=== PATIENT | female | born 1985 | race African-American/Black ===

== ENCOUNTER 2024-12-06 08:56 | Outpatient (AMB) | payer OTHER, SELFPAY ==
--- NOTE | 2024-12-06 09:00 | A.OFFVIS_ITS ---
Vital Signs 12/06/24 09:01 Height 5 ft 5 in Weight 343 lb 4.156 oz BMI 57.1 BP 126/84 Blood Pressure Location Rt brachial Position Sitting Pulse 73 Pulse Source Pulse Oximeter Pulse Oximetry (%) 98 Oxygen Delivery Method Room Air Intake Visit Reasons: DMT2 A1c 7.6% Intake Note: Patient present today for Type 2 Diabetes Mellitus Last Diabetic eye exam: 09/2024 [facility] Last Podiatry Visit: Doesn't have one Random Glucose: 116 mg/dl HgA1C: 7.6% 09/2024 (PCP) Mail Rider Required: No Accompanied by: Daughter Allergies No Known Allergies Allergy (Verified 12/06/24 09:06) Medication List - Last Reconciled 12/06/24 by Emi Toussaint PA-C albuterol sulfate 90 mcg/actuation (Ventolin HFA) 2 puffs inhalation Q4H PRN alcohol swabs pad topical TID PRN amlodipine 5 mg PO DAILY blood sugar diagnostic (FreeStyle Lite Strips) As directed budesonide-formoterol 160-4.5 mcg/actuation (Symbicort) inhalation dulaglutide (Trulicity) 1.5 mg subcut QWEEK lancets (FreeStyle Lancets) As directed HPI HPI DMT2 A1c 7.6%: Details: Patient is a 39-year-old female who presents today for an initial consult regarding her diabetes. She has a significant past medical history of hyperten camron, hyperlipidemia and type 2 diabetes. Endo: Diagnosed with diabetes in 2024. Most recent A1c was 7.6. Currently on Trulicity 1.5 mg weekly. She states that she really wants to be healthier and has an appointment with a wage conciliator in February. - states she is getting abdominal pain and nausea with the trulicity. She has not tried metformin yet. She states taking metformin makes her nervous as most of her family members have felt very sick with this medication. She is has lost about 10 lbs with trulicity. CV: Blood pressure today in the office is 126/84. She is currently on am lodipine 5 mg daily [facility] Medical History (Updated 12/06/24 @ 09:20 by Emi Toussaint PA-C) Obesity Ganglion, right wrist HTN (hypertension) Hx of type 2 diabetes mellitus Family History Father No problems noted. Mother No problems noted. Social History (Updated 11/22/24 @ 15:18 by WANDER Franklin) Patient Tobacco Use Status: Former Tobacco user Physical Exam Const Orientation/consciousness: patient oriented x3 Neck Neck: Yes no lymphadenopathy Thyroid: Thyroid normal Carotids: no bruits Resp Auscultation: clear to auscultation bilaterally Cardio Rate: regular rate Rhythm: regular rhythm Heart sounds: S1 normal heart sound present and S2 normal heart sound present Peripheral pulses: dorsalis pedis present Neuro General: patient oriented x3, gait normal and no focal motor deficits Extrem Other: Monofilament sensation intact bilaterally. Vibratory sensation intact bilaterally. Skin intact. General: Yes normal to inspection Assessment & Plan Assessment & Plan (1) Uncontrolled type 2 diabetes mellitus with hyperglycemia: Code(s): E11.65 - Type 2 diabetes mellitus with hyperglycemia Category: Medical Plan: I spent 60 minutes in direct patient care, [id number] contact, chart review and note dictation We spent significant time discussing the pathophysiology of diabetes, the differences between type 1 and type 2 diabetes and complications associated with diabetes including but not limited to blindness, increased risk of stroke, MA, kidney disease, amputations, infections etc.. Reviewed signs and symptoms of hyper and hypoglycemia that would require emergent medical treatment Reviewed rule of 15 We will start metformin 500 mg daily. I will discontinue the Trulicity as she is getting abdominal pain and nausea with injection lasting a few days and switch to Mounjaro. We reviewed risks and benefits and adverse effects of the Mounjaro. I will have her return in one-month. Labs prior to appointment. She will follow up sooner if needed. Has testing supplies at home. (2) HTN (hypertension): Code(s): I10 - Essential (primary) hypertension Category: Medical Plan: Continue current regimen (3) Severe obesity (BMI >= 40): Code(s): E66.01 - Morbid (severe) obesity due to excess calories Category: Medical Plan: Has an appointment with a wage conciliator in February. We did discuss higher prot ein diet, reducing carbohydrate and sugar intake. I have also encouraged physical activity as tolerated. I have also started her on Mounjaro. We reviewed an dieudonne called [employer] to help come up with meal ideas. Her daughter was here today with her and has the dieudonne on her phone and tried to come up with healthy meals to cook for a family of 7. Orders: Orders Comprehensive [place]. Panel Fast Today E11.65 - Type 2 diabetes mellitus with hyperglycemia, E66.01 - Morbid (severe) obesity due to excess calories, I10 - Essential (primary) hypertension Hemoglobin A1c Today E11.65 - Type 2 diabetes mellitus with hyperglycemia, E66.01 - Morbid (severe) obesity due to excess calories, I10 - Essential (primary) hypertension, R73.01 - Impaired fasting glucose Lipid Panel Today E11.65 - Type 2 diabetes mellitus with hyperglycemia, E66.01 - Morbid (severe) obesity due to excess calories, I10 - Essential (primary) hypertension Microalbumin, Random (w Creat) Today E11.65 - Type 2 diabetes mellitus with hyperglycemia, E66.01 - Morbid (severe) obesity due to excess calories, I10 - Essential (primary) hypertension Medications: New tirzepatide (Mounjaro) for 4 weeks 2.5 mg (0.5 mL) subcut QWEEK 2 mL 1RF metformin 500 mg PO BID 60 tabs 1RF Coding Level of Care Code New Pt Level 5 (71168) Complex EM visit Add On G2211 Diagnoses Uncontrolled type 2 diabetes mellitus with hyperglycemia E11.65 HTN (hypertension) I10 Severe obesity (BMI >= 40) E66.01
[2024-12-06 09:01] VITALS: BP 126/84; PULSE 73; O2SAT 98; BMI 57.1
[2024-12-06 09:13] LABS: Glucose, Whole Blood 116 mg/dL (60-115)
--- OUTSIDE RECORDS SUMMARY | 2024-12-06 09:47 | XMS_ITS ---
Author Name [facility] Organization Unknown Care Team Organization Name Specialty Phone Email Start Date End Da te [facility] Slime Bonner Primary Care 02/07/202311/26 [facility] Kezia Chu Primary Care 10/13/2022 11/27/19 [facility] Dimple Guzman APRN Primary Care 08/15/2022 [facility] Modesta Velez Primary Care 02/15/2022
--- OUTSIDE RECORDS SUMMARY | 2024-12-06 09:47 | XMS_ITS | Clinical Summary ---
Author Organization [place] [id number] [facility] Address [address] [place], [place] [address] [address] Phone Care Team Providers Care Clinical Liaison Name Role Phone Dave Rodriguez MD Primary Care Provider [phone] Allergies Active Allergy Reactions Criticality Noted Date Comments Benzonatate 03/15/2023 Facial rash Diphth,Pertus(Acell),Tetanus Swelling Medium 025 Medications etonogestrel-elut ing contraceptive device 68 mg implant subdermal implant Inject into the skin. Active budesonide (Pulmicort Flexhaler) 90 mcg/actuation inhaler Inhale 2 puffs by mouth 2 (two) times a day. Rinse mouth with water after use to reduce aftertaste and incidence of candidiasis. Do not swallow. 3 each 1 5 Active albuterol HFA (Ventolin HFA) 90 mcg/actuation inhalerIndication s:Asthma, unspecified asthma severity, unspecified whether complicated, unspecified whether persistent Inhale 2 puffs by mouth every 4 (four) hours if needed for wheezing or shortness of breath. 8 g 2 5 05/10/19 26 Active fluticasone propionate (FLONASE) 50 mcg/actuation nasal spray SPRAY 2 SPRAYS INTO INTO EACH NOSTRIL EVERY DAY SHAKE GENTLY. CLEAN TIP AND REPLACE CAP AFTER USE 48 mL 5 Active blood-glucose meter [facility] Check blood glucose twice a day 1 each 5 Active glucose blood (Blood Glucose Test) test strip Use as instructed 100 each 11 5 10/01/19 26 Active Autolet lancing device Use 1 - 4 times daily as instructed 100 each 5 10/01/19 26 Active lancets lancets Use 1 - 4 times daily as instructed 100 each 5 10/01/19 26 Active isopropyl alcohoL 70 % towelette Use 3 times daily or as needed to test blood sugar 100 each Active sharps container Use as directed 1 each 5 10/01/19 Active FreeStyle Lite Meter monitoring kit 1 each 1 (one) time each day. 1 each 5 10/02/19 Active blood sugar diagnostic (FreeStyle Lite Strips) test strip Use to test sugar daily 100 each 1 5 10/01/19 26 Active budesonide-formot Harry (SYMBICORT) 160-4.5 mcg/actuation inhaler Inhale 2 puffs by mouth 2 (two) times a day. Rinse mouth with water after use to reduce aftertaste and incidence of candidiasis. Do not swallow. 3 each 5 10/11/19 Active amLODIPine (NORVASC) 5 mg tablet Take 1 tablet (5 mg total) by mouth 1 (one) time each day. 90 each 5 10/25/19 Active dulaglutide (TRULICITY) 1.5 mg/0.5 mL pen injector injectionIndicati ons:Type 2 diabetes mellitus without complication, without long-term current use of insulin ([facility] V24, [facility] V28) Inject 0.5 mL (1.5 mg total) under the skin every 7 (seven) days. 3 mL 2 5 Active Active Problems Problem Noted Date Diagnosed Date Primary hypertension 10/24/2024 Assessment & Plan (10/30/2024 2:58 PM EDT): The patient has a history of hypertension. Blood pressure today was noted to be elevated. The patient is currently not on any blood pressure medications. Echocardiogram showed evidence of moderate LVH which likely represents endorgan damage in the setting of her uncontrolled high blood pressure (hypertensive cardiomyopathy). Given her age, we need to consider the possibility of secondary hypertension. As such, we will order a renal artery duplex to rule out renal artery stenosis, will order laboratory testing to rule out the presence of pheochromocytoma and hyperaldosteronism, I will order a repeat TSH level to rule out the presence of hyperthyroidism. Finally, the patient was instructed to continue with plans to complete a sleep study which the patient states was previously arranged by her primary care physician. In the meantime, we will start the patient on amlodipine 5 mg orally daily. Orders: Ambulatory referral to Cardiology ECG 12 lead Vascular US duplex renal artery/venous bilateral; Future Comprehensive metabolic panel; Future Metanephrines, plasma free; Future Plasma renin activity; Future Aldosterone, direct renin ratio; Future Thyroid stimulating hormone with reflex to free t4 and free t3; Future Other chest pain 10/24/2024 Assessment & Plan (10/30/2024 2:58 PM EDT): The patient came for evaluation due to episodes of chest pain. Description of symptoms: Atypical Risk factors for CAD: Diabetes, obesity, hypertension Management plan: 1. Ischemic evaluation with a cardiac CT scan. The use of a cardiac CT scan is recommended by the 2021 chest pain guidelines for evaluation of patients with stable chest pain, no known CAD, and increased risk for the presence of coronary artery disease (level 1 age recommendation). Orders: CT Angio Heart w 3D Imaging/Function; Future Palpitations 10/24/2024 Assessment & Plan (10/30/2024 2:59 PM EDT): The patient has been experiencing episodes of palpitations. We will order a Holter monitor to evaluate for any underlying arrhythmias as a cause of her symptoms. Orders: Cardiac holter monitor (<= 48 hours); Future Snoring 10/24/2024 Class 3 severe obesity due t o excess calories with serious comorbidity and body mass index (BMI) of 50.0 to 59.9 in adult ([facility] V24, [facility] V28) 10/24/2024 Assessment & Plan (10/30/2024 2:58 PM EDT): The patient has evidence of severe obesity. Her BMI is almost 58. She has evidence of comorbidities associated with her obesity including hypertension and diabetes mellitus type 2. As such, she would benefit from aggressive weight loss. We discussed the possibility of considering bariatric surgery. The patient is interested in learning more about the possibility of bariatric surgery. As such, we will refer the patient for an evaluation with the bariatric surgery team. Orders: Ambulatory referral to Bariatric Surgery; Future DM (diabetes mellitus), type 2 ([facility] [place], [facility] V28) 09/27/2024 Ganglion of right wrist 02/10/2023 Radial styloid tenosynovitis 02/10/2023 Overview (01/17/2024): status post right wrist first dorsal compartment release with tendon debridement on 02/23/[address] Bright Inflammatory arthritis 09/06/2022 Arthritis of knee 10/31/2017 Lumbar herniated disc 10/31/2017 Resolved Problems Problem Noted Date Diagnosed Date Resolved Date Morbid obesity with BMI of 4 5.0-49.9, adult ([facility] [place], [facility]) 01/17/2024 10/24/2024 Encounters Date Type Department Care Team Description 11/22/2024 10:00 AM EDT Ancillary Procedure [facility] Cardiology [facility] [address] [place] [phone] Palpitations 10/30/2024 2:30 PM EDT Office Visit Internal Medicine - [address] [place] [phone] Dave Rodriguez MD Type 2 diabetes mellitus without complication, without long-term current use of insulin ([facility] [place] [facility] V28) (Primary Dx); Class 3 severe obesity due to excess calories with serious comorbidity and body mass index (BMI) of 50.0 to 59.9 in adult ([facility] [place], [facility] V28); Ganglion, right wrist 10/30/2024 Telephone [facility] [address] [place] [address] Brian Martinez MD 10/30/2024 Telephone [facility] [address] [place] [address] Brian Martinez MD 10/24/2024 9:20 AM EDT Office Visit [facility] Cardiology [facility] [address] [place] [phone] Brian Martinez MD Other chest pain (Primary Dx); Primary hypertension; Palpitations; Class 3 severe obesity due to excess calories with serious comorbidity and body mass index (BMI) of 50.0 to 59.9 in adult (CMS/HCC V24, CMS/HCC V28); Snoring 10/17/2024 Telephone [facility] [address] [place] [phone] Dave Rodriguez MD 10/10/2024 9:45 AM EDT Office Visit Pulmonolgy - [place] [address] [place] [phone] Janeen Srivastava MD Moderate persistent asthma, unspecified whether complicated (Primary Dx); Dyspnea, unspecified type; Apnea; Primary hypertension 10/09/2024 8:00 AM EDT Ancillary Procedure [facility] - [address] [place] [phone] Dyspnea, unspecified type 10/02/2024 Telephone Internal Medicine - [address] [place], [place] [phone] Dave Rodriguez MD 09/30/2024 Telephone Internal [facility] - [address] [place], [place] [phone] Dave Rodriguez MD 09/30/2024 Telephone [facility] - [address] [place], [place] [phone] Dave Rodriguez MD 09/27/2024 Telephone Internal Medicine - [address] [place], [place] [phone] Dave Rodriguez MD 09/27/2024 Telephone Pediatrics - [address] [place], [place] [phone] Dave Rodriguez MD 09/26/2024 9:30 AM EDT Office Visit Internal Medicine - [address] [phone] Dave Rodriguez MD Encounter for weight management (Primary Dx); Class 3 severe obesity due to excess calories without serious comorbidity with body mass index (BMI) of 50.0 to 59.9 in adult ([facility] [place], [facility] V28) 09/26/2024 Telephone Pediatrics - [address] [phone] Dave Rodriguez MD 09/25/2024 8:00 AM EDT [facility] [address] [phone] Janeen Srivastava MD Loud snoring (Primary Dx); Orthopnea; Dyspnea, unspecified type; Mild persistent asthma, unspecified whether complicated; Snoring; Class 3 severe obesity with serious comorbidity and body mass index (BMI) of 50.0 to 59.9 in adult, unspecified obesity type ([facility] [place], [facility] V28) 09/25/[facility] [address] [phone] Janeen Srivastava MD from Last 3 Months Immunizations Name Administration Dates Next Due Tdap Tetanus diptheria acell ular pertussis (Boostrix; Adacel) 7yo and older 05/10/2024 Surgical History Surgery Date Site/Laterality Comments CHOLECYSTECTOMY PROCEDURE: [place] CHOLECYSTECTOMY OTHER SURGICAL HISTORY cyst removed from right hand. Medical History Medical History Date Comments Morbid obesity with BMI of 4 5.0-49.9, adult ([facility] V24, [facility] V28) DX:Morbid obesity wit h BMI of 45.0-49.9, adult ([facility]) Primary hypertension Arthritis of knee Lumbar herniated disc Primary hypertension 10/24/2024 Family History Medical History Relation Name Comments Suicide Attempts Father Arthritis Mother Asthma Mother Hypertension Mother Stroke Mother Arthritis Sister Breast cancer Neg Hx Colon cancer Neg Hx Relation Name Status Comments Father Mother Sister Alive Social History Tobacco Use Types Packs/Day Years Used Date Smoking Tobacco: Former Cigarettes Q uit: 02/08/2023 Smokeless Tobacco: Never Tobacco Cessation:Counseling Given: Not Answered Alcohol Use Standard Drinks/Week Comments No 0 (1 standard drink = 0.6 oz pur e alcohol) Housing Instability Answer Date Recorde d Are you worried that in the next 2 months you may not have stable housing? No 05/10/2024 Food Access & Nutrition Answer Date Rec orded Do you have access to a vari ety of food including fruits and vegetables? Yes 05/10/2024 Access to Healthcare Answer Date Record ed Within the last 3 months, ho w many times did you visit the emergency department for your medical care? 0 05/10/2024 Health Literacy Answer Date Recorded How often do you need to hav e someone help you when you read instructions, pamphlets, or other written material from your doctor or pharmacy? Never 05/10/2024 Caregiver: How often do you need to have someone help you when you read instructions, pamphlets, or other written material from your doctor or pharmacy? Not on file 05/10/2024 Financial Risk Answer Date Recorded How hard is it for you to pa y for the very basics like food, housing, medical care, and air conditioning / heating? Not very hard 05/10/2024 Transportation Answer Date Recorded Has the lack of transportati on kept you from meetings, work, or from getting things needed for daily living? No Has the lack of transportati on kept you from medical appointments or from getting medications? No 05/10/2024 Social Isolation Answer Date Recorded How often do you feel lonely or isolated from th ose around you? Never 05/10/2024 Food Risk Answer Date Recorded Within the past 12 months we worried whether our food would run out before we got money to buy more. Never true 05/10/2024 Within the past 12 months th e food we bought just didn't last and we didn't have money to get more. Never true 05/10/2024 Dependent Care Answer Date Recorded Do you need help finding or paying for care for your loved ones. For example, child day care provider or elderly care for an older adult? No 05/10/2024 Education Answer Date Recorded Do you think completing more education or training, like finishing a GED, going to college, or learning a trade, would be helpful for you? N/A 05/10/2024 Employment and Income Answer Date Recor ded During the last four weeks, have you been actively looking for work? No 05/10/2024 Living Situation Answer Date Recorded What is your living situation? 0 05/10/2024 Comments No Sex and Gender Information Value Date Recorded Sex Assigned at Female 05/17/2024 10:17 AM EST Legal Sex Female 12:52 AM EST Gender Identity Female 05/17/2024 10:17 AM EST Sexual Orientation Straight 05/17/2024 10 :17 AM EST Obstetrics History Last Filed Vital Signs Vital Sign Reading Time Taken Comments Blood Pressure 139/89 10/30/2024 2:05 PM EDT Pulse 88 10/30/2024 2:05 PM EDT Temperature 36 C (96.8 F) 09/25/2024 8:05 AM EDT Respiratory Rate 18 09/25/2024 8:05 AM EDT Oxygen Saturation 97% 10/24/2024 9:00 AM EDT Inhaled Oxygen Concentration - - Weight 158 kg (347 lb 6.4 oz) 10/30/2024 2:05 PM EDT Height 165.1 cm (5' 5 ) 10/30/2024 2:05 PM EDT Body Mass Index 57.81 10/30/2024 2:05 PM EDT Plan of Treatment Upcoming Encounters Date Type Department Care Team (Late st Contact Info) Description 12/20/2024 8:30 AM EDT Ancillary Procedure [facility] Cardiology [facility] [address] [place] [phone] 01/03/2025 2:40 PM EDT Office Visit [facility] [address] [place] [phone] Kulwant Hurst NP [address] [place] [address] [place] [phone] 02/18/2025 2:30 PM EST Office Visit Bariatric Surgery - [place] [address] [place] [phone] Shyann Humphries MD [address] [place] [phone] Health Maintenance Due Date Last Done Comments Breast Cancer Screening 1983 Diabetes: Annual Foot Exam 10/31/1993 Hepatitis B Vaccines (1 of 3 - 19+ 3-dose series) 10/31/2002 Pneumococcal Vaccine: Pediatrics (0 to 5 Years) and At-Risk Patients (6 to 49 Years) (1 of 2 - PCV) 10/31/2002 Cervical Cancer Screening: P ap Smear 10/31/2004 HIV Screening 03/13/2022 Hepatitis C Screening 03/13/2022 COVID-19 Vaccine (4 - 2023-2 5 season) 2023 01/08/2022, 10/24/2020, 08/26/2020 Depression Screening 04/10/2024 Diabetes: Annual Urine Albumin-Creatinine Ratio (uACR) 09/27/2024 Influenza Vaccine (#1) 2024 Diabetes: Blood Sugar Contro l Test (HGBA1C) 03/28/2025 09/26/2024 Social Influencers of Health Screening 05/10/2025 05/10/2024 Diabetes: Annual GFR (Glomerular Filtration Rate) 09/25/2025 09/25/2024, 05/24/2023 Hypertension/CHF/CAD Annual BMP Blood Test 09/25/2025 09/25/2024, 05/24/2023 Diabetes: Annual Retina Eye Exam 10/28/2025 10/28/2024 Cholesterol Screening (Lipid Panel) 09/25/2029 09/25/2024, 05/24/2023 DTaP,Tdap,and Td Vaccines (2 - Td or Tdap) 05/10/2034 05/10/2024 HIB Vaccines Aged Out No longer eligi ble based on patient's age to complete this topic HPV Vaccines Aged Out No longer eligi ble based on patient's age to complete this topic Hepatitis A Vaccines Aged Out No long er eligible based on patient's age to complete this topic IPV Vaccines Aged Out No longer eligi ble based on patient's age to complete this topic MMR Vaccines Aged Out No longer eligi ble based on patient's age to complete this topic Meningococcal ACWY Vaccine Aged Out N o longer eligible based on patient's age to complete this topic Meningococcal B Vaccine Aged Out No l onger eligible based on patient's age to complete this topic RSV Immunization Patients Under 20 months Aged Out No longer eligible b ased on patient's age to complete this topic Varicella Vaccines Aged Out No longer eligible based on patient's age to complete this topic Procedures Procedure Name Priority Date/Time Associated Diagnosis Comments CARDIAC HOLTER MONITOR (REPORT GENERATED IN HOUSE) Routine 11/22/2024 9:55 AM EDT Palpitations HM DIABETES EYE EXAM 10/28/2024 ECG 12-LEAD Routine 10/24/2024 9:19 AM EDT Primary hypertension TRANSTHORACIC ECHOCARDIOGRAM (TTE) COMPLETE W/ CONTRAST STAT 10/09/2024 8:53 AM EDT Dyspnea, unspecified type HEMOGLOBIN A1C Routine 09/26/2024 9:17 AM EDT Elevated glucose THYROID STIMULATING HORMONE WITH REFLEX TO FREE T4 AND FREE T3 Routine 09/25/2024 9:01 AM EDT Health maintenance examination COMPREHENSIVE METABOLIC PANEL Routine 09/25/2024 9:01 AM EDT Health maintenance examination LIPID PANEL WITH REFLEX TO DIRECT LDL Routine 09/25/2024 9:01 AM EDT Health maintenance examination from Last 3 Months Results * CARDIAC HOLTER MONITOR (REPORT GENERATED IN HOUSE) (11/22/2024 9:55 AM EDT) Anatomical Region Laterality Modality Cardiac Diagnost ic Narrative 11/30/2024 6:04 PM EDT [facility] DIAGNOSTIC TESTING DEPARTMENT [address] [place] [address], [place] [address], [place] [address] TEL: FAX: Type of test: 48 hour Holter Monitor Date of test: 11/22/24 Ordering provider: Brian Martines MD Reason for Test: Palpitations Findings: 1: The predominant rhythm was a normal sinus rhythm. 2: Heart rate range was 63- 130 bpm with an average of 86 bpm. 3: Occasional PACs with with a PAC burden of 0.5%. One PVC. 4: No pauses noted. Longest R-R 1.1 sec. No sustained arrhythmias. 5: Diary returned with lightheadedness and SOB noted. EKG at those times showed Sinus Rhythm at 75- 106 bpm. Result [facility] Brian Martinez MD CV CARDIAC SERVICES IA OCEDURES Final Result * Diabetes Eye Exam (10/28/2024) Result [facility] Provider Onbase HEALTH MAINTENANCE Final Resu lt * ECG 12 lead (10/24/2024 9:19 AM EDT) Ventricular Rate ECG 82 BPM GEMUSE Atrial Rate 82 BPM GEMUSE P-R Interval 138 ms GEMUSE QRS Duration 100 ms GEMUSE Q-T Interval 394 ms GEMUSE QTc 460 ms GEMUSE P Wave [place] 43 degrees GEMUSE R [place] 102 degrees GEMUSE T [place] 51 degrees GEMUSE ECG Interpretation Normal sinus rhythm Rightward axis Borderline ECG When compared with ECG of 07-SEP-2016 16:54, No significant change was found Confirmed by BRIAN MARTINEZ ([id number]) on 10/30/2024 2:47:22 PM GEMUSE 10/24/2024 9:19 AM EDT 10/30/2024 2:47 PM EDT Result [facility] Brian Martinez MD ECG ORDERABLES Final Result GEMUSE * (ABNORMAL) TRANSTHORACIC ECHOCARDIOGRAM (TTE) COMPLETE W/ CONTRAST (10/09/2024 8:53 AM EDT) Left Atrium Minor [place] 5.7 cm CV PACS Left Atrium Major [employer] [place] 6.2 cm CV PACS LA Area Sys (A2C) 20 cm2 CV PACS LA Area Sys (A4C) 26 cm2 CV PACS LA Volume (BP) 77 mL CV PACS RA Area 19.0 cm2 CV PACS RA 2D Volume 47 mL CV PACS AV Mean Gradient 5 mmHg CV PACS AV Mean Gradient 5 mmHg CV PACS AV Mean Gradient 5 mmHg CV PACS Ao VTI 29.6 cm CV PACS AV Peak Avni 1.6 m/s CV PACS AV Peak Gradient 10 mmHg CV PACS AV Area Continuity Equation 2.8 cm2 CV PACS AV Area Peak Velocity 2.8 cm2 CV PACS Aortic Sinus Valsalva 3.6 cm CV PACS Ascending Aorta 3.6 cm CV PACS IVSD 1.3(A) 0.6 - 0.9 cm CV PACS LVIDD 5.3(A) 3.8 - 5.2 cm CV PACS LVIDS 3.5 2.2 - 3.5 cm CV PACS LVOT Diameter 2.3 cm CV PACS LVOT Mean Avni 0.7 m/s CV PACS LVOT Mean Grad 2 mmHg CV PACS LVOT Mean Grad 2 mmHg CV PACS LVOT Peak VTI 19.8 cm CV PACS LVOT Peak Avni 1.0 m/s CV PACS LVOT Peak Gradient 4 mmHg CV PACS LVPWD 1.4(A) 0.6 - 0.9 cm CV PACS MV E' Tissue Velocity Lateral 9 cm/s CV PACS MV E' Tissue Velocity Septal 8 cm/s CV PACS LVOT Area 4.2 cm2 CV PACS LVOT Stroke Volume 82 mL CV PACS E Wave Deceleration Time 232 119 - 242 ms CV PACS MV Peak A Avni 0.69 m/s CV PACS MV Peak E Avni 0.90 m/s CV PACS MV Mean Gradient 1 mmHg CV PACS MV Mean Gradient 1 mmHg CV PACS MV Mean Gradient 1 mmHg CV PACS MV VTI 28.8 cm CV PACS Mitral Valve Max Velocity 1.0 m/s CV PACS MV Peak Gradient 4 mmHg CV PACS MV Area Continuity Equation 2.9 cm2 CV PACS PV Acceleration Time 162 ms CV PACS PV Acceleration Time 137 ms CV PACS PV Acceleration Time 150 ms CV PACS RV S' 18 cm/s CV PACS TAPSE 24 mm CV PACS TR Peak Velocity 1.11 m/s CV PACS TR Peak Gradient 5 mmHg CV PACS E/E' Ratio Septal 11 CV PACS E/E' Ratio Averaged 11 CV PACS Relative Wall Thickness ratio 0.53 CV PACS LVOT:AV VTI Index 0.67 CV PACS FS 34 % CV PACS LV Mass 2D 303 g CV PACS MV VTI:LVOT VTI ratio 1.5 CV PACS LVOT flow 291 mL/s CV PACS AV Velocity Ratio 0.63 CV PACS E/A Ratio 1.3 CV PACS E/E' Ratio Lateral 10 CV PACS BSA 2.65 m2 CV PACS LA Volume Index (BP) 31 mL/m2 CV PACS LVIDD Index 2.15 cm/m2 CV PACS LVIDS Index 1.42 cm/m2 CV PACS LV Mass Index 2D 123(A) 44 - 88 g/m2 CV PACS LVOT Stroke Index 33 mL/m2 CV PACS RA 2D Volume Index 19 15 - 27 mL/m2 CV PACS GINNY Index (VTI) 1.12 cm2/m2 CV PACS GINNY Index (Pk Avni) 1.13 cm2/m2 CV PACS Ascending Aorta Index 1.46 cm/m2 CV PACS Anatomical Region Laterality Modality Ultrasound Narrative 10/09/2024 12:51 PM EDT Left ventricle cavity size is normal. Left ventricular systolic function is in the normal range with an ejection fraction of 60-65%.. Definity contrast used delineate endocardial borders. There is concentric hypertrophy. Left ventricle moderate concentric hypertrophy. Right ventricular systolic function is normal. Aortic valve leaflets are mildly thickened. No significant valvular abnormalities identified Left Ventricle Left ventricle cavity size is normal. There is moderate concentric hypertrophy. Systolic function is normal with an ejection fraction of 60-65%. Regional LV wall motion cannot be accurately assessed. There is no diastolic dysfunction. Right Ventricle Right ventricle was not well visualized. Systolic function is normal. Left Atrium Left atrium cavity size is normal. Right Atrium Right atrium cavity is normal. IVC/SVC Inferior vena cava was not well visualized. Mitral Valve The leaflets are mildly thickened. There is mild annular calcification. There is trace regurgitation. There is no evidence of mitral valve stenosis. Tricuspid Valve Tricuspid valve structure is normal. There is trace regurgitation. There is no evidence of tricuspid valve stenosis. Aortic Valve The aortic valve is trileaflet. The leaflets are mildly thickened. There is no significant regurgitation. There is no evidence of aortic valve stenosis. Pulmonic Valve Visualized portions of the pulmonic valve appear normal. There is trace pulmonic valve regurgitation. There is no evidence of pulmonic valve stenosis. Ascending Aorta The aorta appears normal in size. Pericardium Pericardium appears normal. There is no pericardial effusion. Study Details Overall the study quality was technically difficult. Definity contrast was given to enhance imaging. Study was difficult due to: poor endocardial visualization. Janeen Srivastava MD CV ECHO PROCEDURES Final Result * (ABNORMAL) Hemoglobin A1c (09/26/2024 9:17 AM EDT) Pathologist [facility] Hemoglobin A1C 7.6(H) <6.5 % LAB CHEMISTRY METHOD 09/26/2024 1:50 PM EDT [facility] Mean Bld Glu Estim. 171 mg/dL LAB CHEMISTRY METHOD 09/26/2024 1:50 PM EDT [facility] Blood Venous blood specimen / Unknown Venipuncture / Unknown 09/26/2024 9:17 AM EDT 09/26/2024 9:17 AM EDT Jp B[facility]ER LAB BLOOD ORDERABLES Fi nal Result Performing Organization Address [facility] Co de Phone Number [facility] [address] [place] [address], * Thyroid stimulating hormone with reflex to free t4 and free t3 (09/25/2024 9:01 AM EDT) [facility] TSH 3.07 0.40 - 4.00 mcIU/mL LAB CHEMISTRY METHOD 09/25/2024 4:00 PM EDT [facility] Blood Venous blood specimen / Unknown Venipuncture / Unknown 09/25/2024 9:01 AM EDT 09/25/2024 9:01 AM EDT Jp B[facility]ER LAB BLOOD ORDERABLES Fi nal Result Performing Organization Address [facility] Co de Phone Number [facility] [address] [place] [address], * (ABNORMAL) Lipid panel with reflex to direct LDL (09/25/2024 9:01 AM EDT) Pathologist [facility] Cholesterol 88 0 - 200 mg/dL LAB CHEMISTRY METHOD 09/25/2024 2:49 PM EDT [facility] Triglycerides 98 0 - 150 mg/dL LAB CHEMISTRY METHOD 09/25/2024 2:49 PM EDT [facility] HDL 32(L) >=40 mg/dL LAB CHEMISTRY METHOD 09/25/2024 2:49 PM EDT [facility] LDL Calculated 36 0 - 100 mg/dL LAB CHEMISTRY METHOD 09/25/2024 2:49 PM EDT [facility] VLDL Cholesterol Romulo 19.6 mg/dL LAB CHEMISTRY METHOD 09/25/2024 2:49 PM EDT [facility] Non HDL Chol. (LDL+VLDL) 56 <145 mg/dL LAB CHEMISTRY METHOD 09/25/2024 2:49 PM EDT [facility] Chol/HDL Ratio 2.8 0.0 - 4.4 LAB CHEMISTRY METHOD 09/25/2024 2:49 PM EDT [facility] Blood Venous blood specimen / Unknown Venipuncture / Unknown 09/25/2024 9:01 AM EDT 09/25/2024 9:01 AM EDT Jp [facility] LAB BLOOD ORDERABLES Fi nal Result [facility] [address] [place] [address], * (ABNORMAL) Comprehensive metabolic panel (09/25/2024 9:01 AM EDT) [facility] Sodium 139 133 - 145 mmol/L LAB CHEMISTRY METHOD 09/25/2024 2:49 PM EDT [facility] Potassium 4.1 3.5 - 5.5 mmol/L LAB CHEMISTRY METHOD [facility] Chloride 104 96 - 110 mmol/L LAB CHEMISTRY METHOD 09/25/2024 2:49 PM [facility] CO2 27 21 - 32 mmol/L LAB CHEMISTRY METHOD 09/25/2024 2:49 PM [facility] Anion Gap 8 3 - 11 LAB CHEMISTRY METHOD 09/25/2024 2:49 PM [facility] Glucose 144(H) 70 - 100 mg/dL LAB CHEMISTRY METHOD 09/25/2024 2:49 PM [facility] BUN 9 5 - 25 mg/dL LAB CHEMISTRY METHOD 09/25/2024 2:49 PM [facility] Creatinine 0.62 0.50 - 1.10 mg/dL LAB CHEMISTRY METHOD 09/25/2024 2:49 PM [facility] eGFR 116 >=60 mL/min/1. 73m2 LAB CHEMISTRY METHOD 09/25/2024 2:49 PM [facility] Comment:Calculation based on the Chronic Kidney Disease Epidemiology Collaboration (CKD-EPI) equation refit without adjustment for race. BUN/Creatinine Ratio 14.5 LAB CHEMISTRY METHOD 09/25/2024 2:49 PM [facility] Calcium 8.4(L) 8.5 - 10.5 mg/dL LAB CHEMISTRY METHOD 09/25/2024 2:49 PM [facility] AST (SGOT) 12 10 - 42 unit/L LAB CHEMISTRY METHOD 09/25/2024 2:49 PM [facility] ALT (SGPT) 25 10 - 60 unit/L LAB CHEMISTRY METHOD 09/25/2024 2:49 PM [facility] Alkaline Phosphatase 101 42 - 121 unit/L LAB CHEMISTRY METHOD 09/25/2024 2:49 PM [facility] Total Protein 7.0 6.0 - 8.0 g/dL LAB CHEMISTRY METHOD 09/25/2024 2:49 PM [facility] Albumin 3.4 3.2 - 5.0 g/dL LAB CHEMISTRY METHOD 09/25/2024 2:49 PM EDT [facility] Total Bilirubin 0.4 0.0 - 1.4 mg/dL LAB CHEMISTRY METHOD 09/25/2024 2:49 PM EDT [facility] Blood Venous blood specimen / Unknown Venipuncture / Unknown 09/25/2024 9:01 AM EDT 09/25/2024 9:01 AM EDT us Jp [facility] LAB BLOOD ORDERABLES Fi nal Result [facility] [address] [place] [address], from Last 3 Months Insurance [facility] [employer] Care Teams Clinical Liaison Relationship Specialty Start Date End Date Dave Rodriguez MD [facility] [address] [address] PCP - General 01/11/23
== END 2024-12-06 09:42 | disposition home or self-care (01) ==
LOC: HO.ENCR 08:56
PROVIDERS: PCP Internal Medicine; Visit Provider Physician Assistant
DX: E11.65 Type 2 diabetes mellitus with hyperglycemia (principal); I10 Essential (primary) hypertension; E66.01 Morbid (severe) obesity due to excess calories

== ENCOUNTER → 2024-12-06 08:56 | Outpatient (BNVA) | payer OTHER, SELFPAY | PROVIDERS: PCP Internal Medicine; Visit Provider Physician Assistant | DX: E11.65 Type 2 diabetes mellitus with hyperglycemia (principal); I10 Essential (primary) hypertension; E78.5 Hyperlipidemia, unspecified; R10.9 Unspecified abdominal pain; E66.01 Morbid (severe) obesity due to excess calories; Z68.43 Body mass index [BMI] 50.0-59.9, adult; Z79.899 Other long term (current) drug therapy | CPT/HCPCS: 82947; 99202 ==

== ENCOUNTER 2025-01-03 11:15 | Outpatient (AMB) | payer OTHER, SELFPAY ==
[2025-01-03 11:19] VITALS: BP 130/80; PULSE 83; O2SAT 98; BMI 56.3
--- NOTE | 2025-01-03 11:19 | MHC.OFFVIS ---
Vital Signs 01/03/25 11:19 Height 5 ft 5 in Weight 338 lb 3.025 oz BMI 56.3 BP 130/80 Blood Pressure Location Rt brachial Position Sitting Pulse 83 Pulse Source Pulse Oximeter Pulse Oximetry (%) 98 Oxygen Delivery Method Room Air Intake Visit Reasons: T2DM Intake Note: Patient present today for Type 2 Diabetes Mellitus Last Diabetic eye exam:11/2024 Last Podiatry Visit: doesn't have one Random Glucose: 112mg/dl HgA1C: Due6.6% Accompanied by: Daughter Allergies benzonatate (From [employer]z[facility]yen[facility] Nehemias) Allergy (Mild, Verified 01/03/25 11:22) breath Medication List - Last Reconciled 01/03/25 by Emi Toussaint PA-C albuterol sulfate 90 mcg/actuation (Ventolin HFA) 2 puffs inhalation Q4H PRN alcohol swabs pad topical TID PRN amlodipine 5 mg PO DAILY blood sugar diagnostic (FreeStyle Lite Strips) As directed budesonide-formoterol 160-4.5 mcg/actuation (Symbicort) inhalation lancets (FreeStyle Lancets) As directed metformin 500 mg PO BID tirzepatide (Mounjaro) 5 mg (0.5 mL) subcut QWEEK HPI HPI T2DM: Details: Patient is a 39-year-old female who presents today for an initial consult regarding her diabetes. She has a significant past medical history of hypertension, hyperlipidemia and type 2 diabetes. Endo: Diagnosed with diabetes in 2024. Last A1c was 7.6 and today is 6.6 Currently on mounjaro 2.5 mg weekly. She states that she really wants to be healthier and has made a lot of changes. previous meds--trulicity caused n/v. She states metformin caused gi upset. She is has lost about 7 lbs with mounjaro in the last month. CV: Blood pressure today in the office is 130/80. She is currently on amlodipine 5 mg daily [facility] Medical History (Updated 12/06/24 @ 09:20 by Emi Toussaint PA-C) Obesity Ganglion, right wrist HTN (hypertension) Hx of type 2 diabetes mellitus Family History Father No problems noted. Mother No problems noted. Social History Patient Tobacco Use Status: Former Tobacco user Physical Exam Vital Signs: Last Vital Signs Pulse 83 01/03/25 11:19 BP 130/80 01/03/25 11:19 Pulse Ox 98 01/03/25 11:19 Oxygen Delivery Method Room Air 01/03/25 11:19 BMI result Body Mass Index 56.3 Const Orientation/consciousness: patient oriented x3 HEENT Ears: hearing grossly normal bilaterally Neck Thyroid: Thyroid normal Lymphatic: no lymphadenopathy noted Resp Auscultation: clear to auscultation bilaterally Cardio Rate: regular rate Rhythm: regular rhythm Heart sounds: S1 normal heart sound present and S2 normal heart sound present Skin General skin exam: no rashes or lesions noted Neuro General: patient oriented x3, gait normal and no focal motor deficits Assessment & Plan Assessment & Plan (1) Uncontrolled type 2 diabetes mellitus with hyperglycemia: Code(s): E11.65 - Type 2 diabetes mellitus with hyperglycemia Category: Medical Plan: increase mounjaro to 5 mg weekly (2) Severe obesity (BMI >= 40): Code(s): E66.01 - Morbid (severe) obesity due to excess calories Category: Medical Plan: has lost weight congratulated on weight loss and encouraged to in increase protein and exercise. she is working on nutrition (3) HTN (hypertension): Code(s): I10 - Essential (primary) hypertension Category: Medical Plan: wnl will continue amlodipine Orders: Orders AMB Hemoglobin A1c Today E11.65 - Type 2 diabetes mellitus with hyperglycemia Medications: New tirzepatide (Mounjaro) 5 mg (0.5 mL) subcut QWEEK 2 mL 3RF Discontinued tirzepatide (Mounjaro) for 4 weeks Discontinued Reason: Doctor's Order 2.5 mg (0.5 mL) subcut QWEEK 2 mL 1RF Coding Level of Care Code Est Pt Level 4 (91445) Complex EM visit Add On G2211 Diagnoses Uncontrolled type 2 diabetes mellitus with hyperglycemia E11.65 Severe obesity (BMI >= 40) E66.01 HTN (hypertension) I10
[2025-01-03 11:32] LABS: Glucose, Whole Blood 112 mg/dL (60-115)
--- OUTSIDE RECORDS SUMMARY | 2025-01-03 13:03 | XMS_ITS | Encounter Summary ---
Author Organization [facility] Address [address] [place] [address] Care Team Providers Care Owner Operator Name Role Phone Dave Rodriguez MD Primary Care Provider [phone] Reason for Visit * Reason Onset Date Comments Referral 10/30/2024 Bariatric Surger y Encounter Details Date Type Department Care Team ([facility] Contact Info) Description 10/30/2024 Telephone [facility] Cardiology [facility] [address] [place] [address] [place] [address] Abran Colunga MD [address] [place] [address] [address] [place] [address] Social History Tobacco Use Types Packs/Day Years Used Date Smoking Tobacco: Former Cigarettes Q uit: 02/08/2023 Smokeless Tobacco: Never Alcohol Use Standard Drinks/Week Comments No 0 [...] for your loved ones. For example, child development consultant or elderly care for an older adult? [...] Orientation Straight 05/17/2024 10 :17 AM EST documented as of this encounter Progress Notes * Kimberly Velasco MA - 12/31/2024 10:30 AM EDT Called over to Dr. Humphries office [phone] who stated patient has been scheduled for an appointment on 02/18/25 at 2:30pm. * Kimberly Velasco MA - 10/31/2024 8:38 AM EDT Faxed over referral to Dr. Humphries Bariatric Surgery [phone]. * Abran Colunga MD - 10/30/2024 2:59 PM EDT Please refer the patient for an evaluation with Dr. Humphries at the [facility] documented in this encounter Plan of Treatment Upcoming Encounters Date Type Department Care Team (Late st Contact Info) Description 01/07/2025 10:30 AM EDT Office Visit Orthopedic Surgery - [place] [address] [facility] [address] [place] [phone] Nubia Bright MD [address] [place] [phone] 01/15/2025 5:50 PM EDT Appointment Radiology Department [address] [phone] 02/18/2025 2:30 PM EST Office Visit Bariatric Surgery - [place] [address] [facility] [address] [place] [phone] Shyann Humphries MD [address] [place] [phone] 02/21/2025 8:30 AM EST Ancillary Procedure [facility] [address] [facility] [address] [place] [phone] documented as of this encounter Visit Diagnoses Not on filedocumented in this encounter Care Teams Owner Operator Relationship Specialty Start Date End Date Dave Rodriguez MD [address] [place] [address] PCP - General 01/11/23 documented as of this encounter
--- OUTSIDE RECORDS SUMMARY | 2025-01-03 13:03 | XMS_ITS | Encounter Summary ---
Author Organization [facility] Address [address] [place] [address] Care Team Providers Care Pattern Stamper Name Role Phone Dave Rodriguez MD Primary Care Provider [phone] Reason for Visit * Reason Onset Date Comments Results 12/12/2024 Encounter Details Date Type Department Care Team ([facility] Contact Info) Description 12/12/2024 Telephone Pulmonology - [place] [address] [address] Janeen Srivastava MD [address] [address] Social History Tobacco Use Types Packs/Day Years [...] your loved ones. For example, child development assistant or elderly care for an older adult? [...] as of this encounter Progress Notes * Symone Butcher MA - 12/13/2024 11:53 AM EDT Unable to leave vm phone not available. * Janeen Srivastava MD - 12/12/2024 5:46 PM EDT Tell patient sleep study is positive. She had to come in for a ydvs-bh-sjhp encounter, since last visit was over 30 days ago. Please, provide patient an appointment next week, okay to overbook. * Symone Butcher MA - 12/12/2024 11:53 AM EDT Results scanned into procedures please review and advise * Heidi Thacker - 12/12/2024 10:06 AM EDT Patient called upset as she has been done her sleep study , and her results has been in patient chart since 11/26/24. Patient will like to know if she does has [facility]WARD , and if she does how fats can she get a cpap machine. Also patient stated that if patient does have EDWARD she will like to have her order send to [facility] . Please advice documented in this encounter Plan of Treatment Upcoming Encounters Date Type Department Care Team (Late st Contact Info) Description 01/07/2025 10:30 AM EDT Office Visit Orthopedic Surgery - [address] [place] [phone] Nubia Bright MD [address] [place] [phone] 01/15/2025 5:50 PM EDT Appointment Radiology Department - [address] [phone] 02/18/2025 2:30 PM EST Office Visit Bariatric Surgery - [place] [address] [facility] [address] [place] [phone] Shyann Humphries MD [address] [place] [phone] 02/21/2025 8:30 AM EST Ancillary Procedure [facility] - [address] [place] [address] documented as of this encounter Visit Diagnoses Not on filedocumented in this encounter Care Teams Pattern Stamper Relationship Specialty Start Date End Date Dave Rodriguez MD [address] [place] [address] PCP - General 01/11/23 documented as of this encounter
--- OUTSIDE RECORDS SUMMARY | 2025-01-03 13:04 | XMS_ITS | Clinical Summary ---
Author Organization [place] [id number] [facility] Address [address] [place] [address] [address] Phone Care Team Providers Care Company Manager Name Role Phone Dave Rodriguez MD Primary Care Provider [phone] Allergies Active Allergy Reactions Criticality Noted Date [...] candidiasis. Do not swallow. 3 each 1 05/10/19 25 Active albuterol HFA (Ventolin HFA) 90 mcg/actuation inhalerIndication s:Asthma, unspecified asthma severity, unspecified whether complicated, unspecified whether persistent Inhale 2 puffs by mouth every 4 (four) hours if needed for wheezing or shortness of breath. 8 g 2 05/10/19 25 026 Active fluticasone propionate (FLONASE) 50 mcg/actuation nasal spray SPRAY 2 SPRAYS INTO INTO EACH NOSTRIL EVERY DAY SHAKE GENTLY. CLEAN TIP AND REPLACE CAP AFTER USE 48 mL 06/07/19 25 Active blood-glucose meter [facility] Check blood glucose twice a day 1 each 10/01/19 25 Active glucose blood (Blood Glucose Test) test strip Use as instructed 100 each 11 10/01/19 25 026 Active Autolet lancing device Use 1 - 4 times daily as instructed 100 each 10/01/19 25 026 Active lancets lancets Use 1 - 4 times daily as instructed 100 each 10/01/19 25 026 Active isopropyl alcohoL 70 % towelette Use 3 times daily or as needed to test blood sugar 100 each 10/01/19 25 Active sharps container Use as directed 1 each 10/01/19 25 Active FreeStyle Lite Meter monitoring kit 1 each 1 (one) time each day. 1 each 10/02/19 25 Active blood sugar diagnostic (FreeStyle Lite Strips) test strip Use to test sugar daily 100 each 10/02/19 25 026 Active budesonide-formot Harry (SYMBICORT) 160-4.5 mcg/actuation inhaler Inhale 2 puffs by mouth 2 (two) times a day. Rinse mouth with water after use to reduce aftertaste and incidence of candidiasis. Do not swallow. 3 each 10/11/19 25 026 Active amLODIPine (NORVASC) 5 mg tablet Take 1 tablet (5 mg total) by mouth 1 (one) time each day. 90 each 10/25/19 25 026 Active Mounjaro 2.5 mg/0.5 mL injection Inject 0.5 mL (2.5 mg total) under the skin every 7 (seven) days. 12/07/19 25 Active acetaminophen (TYLENOL 8 HOUR) 650 mg 8 hr tabletIndications :Wrist swelling, right Take 1 tablet (650 mg total) by mouth every 8 (eight) hours if needed for mild pain. Do not crush, chew, or split. 30 tablet 12/18/19 25 025 Active ibuprofen (ADVIL,MOTRIN) 600 mg tabletIndications :Wrist swelling, right Take 1 tablet (600 mg total) by mouth every 8 (eight) hours if needed for mild pain for up to 63 doses. 63 tablet 12/18/19 25 Active dulaglutide (TRULICITY) 1.5 mg/0.5 mL pen injector injectionIndicati ons:Type 2 diabetes mellitus without complication, without long-term current use of insulin ([facility] V24, [facility] V28) Inject 0.5 mL (1.5 mg total) under the skin every 7 (seven) days. 3 mL 2 10/31/19 25 025 Discontin ued(Ineff ective) Active Problems Problem Noted Date Diagnosed Date Pain and swelling of right wrist 12/17/2024 Wrist swelling, right 12/17/2024 Primary hypertension 10/24/2024 Assessment & Plan (10/30/2024 [...] cardiac CT scan is recommended by the 2020 chest pain guidelines for evaluation of patients [...] (BMI) of 50.0 to 59.9 in adult ([facility] V24, [facility] V28) 10/24/2024 Assessment & Plan (10/30/2024 2:58 [...] Surgery; Future DM (diabetes mellitus), type 2 ([facility] V24, [facility] V28) 09/27/2024 Ganglion of right wrist 02/10/2023 Radial styloid tenosynovitis 02/10/2023 Overview (01/17/2024): status post right wrist first dorsal compartment release with tendon debridement on 02/23/[address] Bright Inflammatory arthritis 09/06/2022 Arthritis of knee 10/31/2017 Lumbar herniated disc 10/31/2017 Resolved Problems Problem Noted Date Diagnosed Date Resolved Date Morbid obesity with BMI of 4 5.0-49.9, adult ([facility] V24, [facility] V28) 01/17/2024 10/24/2024 Encounters Date Type Department Care Team Description 12/17/2024 11:15 AM EDT Office Visit Orthopedic Surgery - [address] [place] [address] Nubia Bright MD Wrist swelling, right (Primary Dx); Pain and swelling of right wrist 12/17/2024 10:30 AM EDT Office Visit Pulmonology - [place] [address] [place] [phone] Janeen Srivastava MD EDWARD (obstructive sleep apnea) (Primary Dx); Moderate persistent asthma, unspecified whether complicated; Ex-smoker 12/17/2024 Telephone Pulmonology - [place] [address] [place] [phone] Janeen Srivastava MD 12/12/2024 Telephone Pulmonology - [place] [address] [place] [phone] Janeen Srivastava MD 11/22/2024 10:00 AM EDT Ancillary Procedure [facility] [address] [place] [phone] Palpitations 10/30/2024 2:30 PM EDT [facility] [address] [place] [phone] Dave Rodriguez MD Type 2 diabetes mellitus without complication, without long-term current use of insulin (CMS/HCC V24, CMS/HCC V28) (Primary Dx); Class 3 severe obesity due to excess calories with serious comorbidity and body mass index (BMI) of 50.0 to 59.9 in adult (CMS/HCC V24, CMS/HCC V28); Ganglion, right wrist 10/30/2024 Telephone [facility] [address] [place] [address] Brian Martinez MD 10/30/2024 Telephone [facility] [address] [facility] [address] [place] [address] Brian Martinez MD 10/24/2024 9:20 AM EDT Office Visit [facility] [address] [place] [address] Brian Martinez MD Other chest pain (Primary Dx); Primary hypertension; Palpitations; Class 3 severe obesity due to excess calories with serious comorbidity and body mass index (BMI) of 50.0 to 59.9 in adult ([facility] V24, [facility] V28); Snoring 10/17/2024 Telephone [facility] [address] [place] [address] Dave Rodriguez MD 10/10/2024 9:45 AM EDT Office Visit Pulmonology - [place] [address] [place] [address] Janeen Srivastava MD Moderate persistent asthma, unspecified whether complicated (Primary Dx); Dyspnea, unspecified type; Apnea; Primary hypertension 10/09/2024 8:00 AM EDT Ancillary Procedure [facility] [address] [place] [address] Dyspnea, unspecified type from Last 3 Months Immunizations Name Administration Dates Next Due Tdap Tetanus diptheria acell ular pertussis (Boostrix; Adacel) 7yo and older 05/10/2024 Surgical History Surgery Date Site/Laterality Comments CHOLECYSTECTOMY PROCEDURE: OK CHOLECYSTECTOMY OTHER SURGICAL HISTORY cyst removed from right hand. DE DAMIEN'S RELEASE 02/23/2023 Right Medical History Medical History Date Comments Morbid obesity with BMI of 4 5.0-49.9, adult ([facility] V24, [facility] V28) DX:Morbid obesity wit h BMI of 45.0-49.9, adult ([facility]) Primary hypertension Arthritis of knee Lumbar herniated [...] for your loved ones. For example, child and adolescent psychologist or elderly care for an older adult? [...] Sign Reading Time Taken Comments Blood Pressure 130/68 12/17/2024 10:02 AM EDT Pulse 73 12/17/2024 10:02 AM EDT Temperature 36 C (96.8 F) 09/25/2024 8:05 AM EDT Respiratory Rate 18 12/17/2024 10:02 AM EDT Oxygen Saturation 99% 12/17/2024 10:02 AM EDT Inhaled Oxygen Concentration - - Weight 156 kg (345 lb) 12/17/2024 11:30 AM EDT Height 165.1 cm (5' 5 ) 12/17/2024 11:30 AM EDT Body Mass Index 57.41 12/17/2024 11:30 AM EDT Plan of Treatment Upcoming Encounters Date Type Department Care Team (Late st Contact Info) Description 01/07/2025 10:30 AM EDT Office Visit Orthopedic Surgery - [place] [address] [facility] [address] [place] [phone] Nubia Bright MD [address] [place] [phone] 01/15/2025 5:50 PM EDT Appointment Radiology Department [address] [phone] 02/18/2025 2:30 PM EST Office Visit Bariatric Surgery - [place] [address] [facility] [address] [place] [phone] Shyann Humphries MD [address] [place] [phone] 02/21/2025 8:30 AM EST Ancillary Procedure [facility] [address] [facility] [address] [place] [phone] Health Maintenance Due Date Last Done Comments Breast Cancer Screening 1983 Diabetes: Annual Foot Exam 10/31/1993 Hepatitis B Vaccines (1 of 3 - 19+ 3-dose series) 10/31/2002 Pneumococcal Vaccine: Pediatrics (0 to 5 Years) and At-Risk Patients (6 to 49 Years) (1 of 2 - PCV) 10/31/2002 Cervical Cancer Screening: P ap Smear 10/31/2004 HIV Screening 03/13/2022 Hepatitis C Screening 03/13/2022 Depression Screening 04/10/2024 Diabetes: Annual Urine Albumin-Creatinine Ratio (uACR) 09/27/2024 COVID-19 Vaccine (4 - 2024-2 6 season) 2024 01/08/2022, 10/24/2020, 08/26/2020 Influenza Vaccine (#1) 2024 Diabetes: Blood Sugar Contro l Test (HGBA1C) 03/28/2025 09/26/2024 Social Influencers of Health Screening 05/10/2025 05/10/2024 Diabetes: Annual GFR (Glomerular Filtration Rate) 09/25/2025 09/25/2024, 05/24/2023 Hypertension/CHF/CAD Annual BMP Blood Test 09/25/2025 09/25/2024, 05/24/2023 Diabetes: Annual Retina Eye Exam 10/28/2025 10/28/2024 Cholesterol Screening (Lipid Panel) 09/25/2029 09/25/2024, 05/24/2023 DTaP,Tdap,and Td Vaccines (2 - Td or Tdap) 05/10/2034 05/10/2024 RSV Immunization Adult Patients (1 - 1-dose 75+ series) 10/31/2058 HIB Vaccines Aged Out No longer eligi [...] Procedure Name Priority Date/Time Associated Diagnosis Comments OK SLEEP STUDY ATTENDED Routine 12/23/2024 9:53 AM EDT XR WRIST 3+ VIEWS RIGHT Routine 12/17/2024 11:50 AM EDT Ganglion, right wrist CARDIAC HOLTER MONITOR (REPORT GENERATED IN HOUSE) Routine 11/22/2024 9:55 AM EDT Palpitations HM DIABETES EYE EXAM 10/28/2024 ECG 12-LEAD Routine 10/24/2024 9:19 AM EDT Primary hypertension TRANSTHORACIC ECHOCARDIOGRAM (TTE) COMPLETE W/ CONTRAST STAT 10/09/2024 8:53 AM EDT Dyspnea, unspecified type HEMOGLOBIN A1C Routine 09/26/2024 9:17 AM EDT Elevated glucose COMPREHENSIVE METABOLIC PANEL Routine 09/25/2024 9:01 AM EDT Health maintenance examination LIPID PANEL WITH REFLEX TO DIRECT LDL Routine 09/25/2024 9:01 AM EDT Health maintenance examination from Last 3 Months or Most Recently Relevant to Health Maintenance Results * General sleep study (12/23/2024 9:53 AM EDT) Historical Provider [facility] ORDERABLES F inal Result * XR Wrist 3+ Views Right (12/17/2024 11:50 AM EDT) Anatomical Region Laterality Modality Upper Extremities, Wrist Right Compute d Radiography Narrative 12/17/2024 10:37 PM EDT AP, lateral, oblique of the right wrist was obtained on 12/17/2024. There are no obvious fractures, lytic lesions, or unusual calcifications. There is some subchondral cyst formation and sclerosis of the ulnocarpal joint consistent with some ulnar impaction syndrome. There are some condylar cysts in the ulnar aspect of the lunate. No fractures or obvious lytic lesions. Carpal alignment appears maintained. Nubia Bright MD IMG XR PROCEDURES Final Resul t * CARDIAC HOLTER MONITOR (REPORT GENERATED IN HOUSE) (11/22/2024 9:55 AM EDT) Anatomical Region Laterality Modality Cardiac Diagnost ic Narrative 11/30/2024 6:04 PM EDT [facility]PART[facility] [address] [id number], [place] [address] TEL: FAX: Type of test: 48 hour [...] showed Sinus Rhythm at 75- 106 bpm. Brian Martinez MD [facility] [place] OCEDURES Final Result * Diabetes Eye Exam (10/28/2024) Provider Onbase HEALTH MAINTENANCE Final Resu lt * ECG 12 lead (10/24/2024 9:19 AM EDT) Ventricular Rate ECG 82 BPM GEMUSE Atrial Rate 82 BPM GEMUSE P-R Interval 138 ms GEMUSE QRS Duration 100 ms GEMUSE Q-T Interval 394 ms GEMUSE QTc 460 ms GEMUSE P Wave [place] 43 degrees GEMUSE R [place] 102 degrees GEMUSE T [place] 51 degrees GEMUSE ECG Interpretation Normal sinus rhythm Rightward axis Borderline ECG When compared with ECG of 07-SEP-2016 16:54, No significant change was found Confirmed by BRIAN MARTINEZ ([id number]) on 10/30/2024 2:47:22 PM GEMUSE 10/24/2024 9:19 AM EDT 10/30/2024 2:47 PM EDT us Brian Martinez MD ECG ORDERABLES Final Result GEMUSE * (ABNORMAL) TRANSTHORACIC ECHOCARDIOGRAM (TTE) COMPLETE W/ CONTRAST (10/09/2024 8:53 AM EDT) Left Atrium Minor [place] 5.7 cm CV PACS Left Atrium Major [place] 6.2 cm CV PACS LA Area Sys [...] (ABNORMAL) Hemoglobin A1c (09/26/2024 9:17 AM EDT) Hemoglobin A1C 7.6(H) <6.5 % LAB CHEMISTRY METHOD 09/26/2024 1:50 PM EDT [facility] Mean Bld Glu Estim. 171 mg/dL LAB CHEMISTRY METHOD 09/26/2024 1:50 PM EDT [facility] Blood Venous blood specimen / Unknown Venipuncture / Unknown 09/26/2024 9:17 AM EDT 09/26/2024 9:17 AM EDT us Jp [facility] LAB BLOOD ORDERABLES Fi nal Result [facility] [address] [place] [address], [place] [phone] * (ABNORMAL) Lipid panel with reflex to direct LDL (09/25/2024 9:01 AM EDT) Cholesterol 88 0 - 200 mg/dL LAB CHEMISTRY METHOD 09/25/2024 2:49 PM EDT [facility] Triglycerides 98 0 - 150 mg/dL LAB CHEMISTRY METHOD 09/25/2024 2:49 PM EDT [facility] HDL 32(L) >=40 mg/dL LAB CHEMISTRY METHOD 09/25/2024 2:49 PM EDT [facility] LDL Calculated 36 0 - 100 mg/dL LAB CHEMISTRY METHOD 09/25/2024 2:49 PM EDT [facility] VLDL Cholesterol Romulo 19.6 mg/dL LAB CHEMISTRY METHOD 09/25/2024 2:49 PM T [facility] Non HDL Chol. (LDL+VLDL) 56 <145 mg/dL LAB CHEMISTRY METHOD 09/25/2024 2:49 PM EDT [facility] Chol/HDL Ratio 2.8 0.0 - 4.4 LAB CHEMISTRY METHOD 09/25/2024 2:49 PM T [facility] Blood Venous blood specimen / Unknown Venipuncture / Unknown 09/25/2024 9:01 AM EDT 09/25/2024 9:01 AM EDT Jp [facility] LAB BLOOD ORDERABLES Fi nal Result [facility] [address] [place] [address], * (ABNORMAL) Comprehensive metabolic panel (09/25/2024 9:01 AM EDT) [facility] Sodium 139 133 - 145 mmol/L LAB CHEMISTRY METHOD 09/25/2024 2:49 PM EDT [facility] Potassium 4.1 3.5 - 5.5 mmol/L LAB CHEMISTRY METHOD 09/25/2024 2:49 PM EDT [facility] Chloride 104 96 - 110 mmol/L LAB CHEMISTRY METHOD 09/25/2024 2:49 PM [facility] CO2 27 21 - 32 mmol/L LAB CHEMISTRY METHOD 09/25/2024 2:49 PM [facility] Anion Gap 8 3 - 11 LAB CHEMISTRY METHOD 09/25/2024 2:49 PM [facility] Glucose 144(H) 70 - 100 mg/dL LAB CHEMISTRY METHOD 09/25/2024 2:49 PM [facility] BUN 9 5 - 25 mg/dL LAB CHEMISTRY METHOD 09/25/2024 2:49 PM [facility] Creatinine 0.62 0.50 - 1.10 mg/dL LAB CHEMISTRY METHOD 09/25/2024 2:49 PM [facility] eGFR 116 >=60 mL/min/1. 73m2 LAB CHEMISTRY METHOD 09/25/2024 2:49 PM [facility] Comment:Calculation based on the Chronic Kidney Disease Epidemiology Collaboration (CKD-EPI) equation refit without adjustment for race. BUN/Creatinine Ratio 14.5 LAB CHEMISTRY METHOD 09/25/2024 2:49 PM [facility] Calcium 8.4(L) 8.5 - 10.5 mg/dL LAB CHEMISTRY METHOD 09/25/2024 2:49 PM [facility] AST (SGOT) 12 10 - 42 unit/L LAB CHEMISTRY METHOD 09/25/2024 2:49 PM [facility] ALT (SGPT) 25 10 - 60 unit/L LAB CHEMISTRY METHOD 09/25/2024 2:49 PM [facility] Alkaline Phosphatase 101 42 - 121 unit/L LAB CHEMISTRY METHOD 09/25/2024 2:49 PM [facility] Total Protein 7.0 6.0 - 8.0 g/dL LAB CHEMISTRY METHOD 09/25/2024 2:49 PM EDT [facility] Albumin 3.4 3.2 - 5.0 g/dL LAB CHEMISTRY METHOD 09/25/2024 2:49 PM EDT [facility] Total Bilirubin 0.4 0.0 - 1.4 mg/dL LAB CHEMISTRY METHOD 09/25/2024 2:49 PM EDT [facility] Blood Venous blood specimen / Unknown Venipuncture / Unknown 09/25/2024 9:01 AM EDT 09/25/2024 9:01 AM EDT us pJ [facility] LAB BLOOD ORDERABLES Fi nal Result [facility] [address] [place] [address], from Last 3 Months or Most Recently Relevant to Health Maintenance Insurance [facility] [employer] Care Teams Company Manager Relationship Specialty Start Date End Date Dave Rodriguez MD [address] [place] [address] PCP - General 01/11/23
== END 2025-01-03 11:47 | disposition home or self-care (01) ==
LOC: HO.ENCR 11:15
PROVIDERS: PCP Internal Medicine; Visit Provider Physician Assistant
DX: E11.65 Type 2 diabetes mellitus with hyperglycemia (principal); E66.01 Morbid (severe) obesity due to excess calories; I10 Essential (primary) hypertension

== ENCOUNTER → 2025-01-03 11:15 | Outpatient (BNVA) | payer OTHER, SELFPAY | PROVIDERS: PCP Internal Medicine; Visit Provider Physician Assistant | DX: E11.65 Type 2 diabetes mellitus with hyperglycemia (principal); E66.01 Morbid (severe) obesity due to excess calories; I10 Essential (primary) hypertension; Z68.43 Body mass index [BMI] 50.0-59.9, adult | CPT/HCPCS: 82947; 83036; 99212 ==